=== PATIENT | male | born 1930 | race Caucasian/White ===

== ENCOUNTER 2020-08-14 12:41 | Inpatient (IN) | payer MEDICARE ==
[2020-08-14 13:25] LABS: #Basophils 0.1 10x3/uL (0.0-0.2); #Eosinphils 1.3 10x3/uL (0.0-0.5); #Monocytes 0.6 10x3/uL (0.0-1.1); #Neutrophils 6.4 10x3/uL (1.5-8.4); %Basophils 0.5 % (0.0-2.0); %Eosinophils 12.4 % (0.0-6.0); %Lymphocytes 21.7 % (18.0-47.0); %Monocytes 5.9 % (0.0-10.0); %Neutrophils 59.1 % (40.0-75.0); Mean Corpuscular HGB CONC 30.9 g/dL (32.0-36.0); Mean Corpuscular Hemoglobin 29.2 pg (27.0-33.0); Mean Corpuscular Volume 94.7 fl (81.2-95.1); Platelet Count 210 10x3/uL (150-450); RBC Distribution Width 15.5 % (11.5-14.5); Red Blood Cell (RBC) Count 5.13 10x6/uL (4.32-5.72); White Blood Cell (WBC) Count 10.8 10x3/uL (3.5-10.5)
[2020-08-14 13:33] LABS: ALT (SGPT) 20 U/L (8-55); AST (SGOT) 21 U/L (5-34); Albumin 3.8 g/dL (3.4-4.8); Alkaline Phosphatase 111 U/L (40-110); Anion Gap 12 mmol/L (10-20); BUN (Urea Nitrogen) 11 mg/dL (8.4-25.7); Bilirubin, Total 0.9 mg/dL (0.2-1.2); Calc. Creatinine Clearance 0 mL/min (70-130); Carbon Dioxide 29 mmol/L (23-31); Chloride 103 mmol/L (98-107); Globulin 3.2 g/dL (2.4-3.5); Glucose 143 mg/dL (83-110); Potassium 3.9 mmol/L (3.5-5.1); Sodium 140 mmol/L (136-145)
[2020-08-14 13:36] LABS: INR-International Normal Ratio 1.1; PTT 28.8 sec (22.0-33.0)
[2020-08-14] MEDS ORDERED: Ondansetron PF 4 MG/2 ML Vial IVP PRN (16:02)
[2020-08-14] MEDS ORDERED: Acetaminophen 325 MG TAB PO PRN (16:02)
[2020-08-14] MEDS ORDERED: Senokot S 8.6-50 MG TAB PO PRN (16:02)
[2020-08-14] MEDS ORDERED: Sodium Chloride 0.9% 1,000 ML IV SCH (16:15)
[2020-08-14 16:42] VITALS: BMI 28.3
[2020-08-14] MEDS: Metoprolol Tartrate 25 MG TAB PO SCH (22:25)
[2020-08-15] MEDS: Mometasone 100 MCG/PUFF (1 INHALER) INH SCH ×3 (05:25→21:12)
[2020-08-15] MEDS: Multivit, Therapeutic 1 TAB PO SCH (08:43)
[2020-08-15] MEDS: Digoxin 0.25 MG TAB PO SCH (08:43)
[2020-08-15] MEDS: Atorvastatin Calcium 40 MG TAB PO SCH (08:43)
[2020-08-15] MEDS: Metoprolol Tartrate 25 MG TAB PO SCH (08:44)
[2020-08-15 09:13] LABS: #Basophils 0.1 10x3/uL (0.0-0.2); #Eosinphils 1.2 10x3/uL (0.0-0.5); #Monocytes 1.1 10x3/uL (0.0-1.1); #Neutrophils 9.2 10x3/uL (1.5-8.4); %Basophils 0.5 % (0.0-2.0); %Eosinophils 8.3 % (0.0-6.0); %Lymphocytes 17.9 % (18.0-47.0); %Monocytes 7.8 % (0.0-10.0); %Neutrophils 65.1 % (40.0-75.0); Hemoglobin 14.3 g/dL (13.5-17.5); Mean Corpuscular HGB CONC 31.4 g/dL (32.0-36.0); Mean Corpuscular Hemoglobin 29.5 pg (27.0-33.0); Mean Platelet Volume 12.6 fl (7.4-10.4); Platelet Count 201 10x3/uL (150-450); RBC Distribution Width 15.6 % (11.5-14.5); Red Blood Cell (RBC) Count 4.85 10x6/uL (4.32-5.72); White Blood Cell (WBC) Count 14.2 10x3/uL (3.5-10.5)
[2020-08-15 09:19] LABS: ALT (SGPT) 22 U/L (8-55); AST (SGOT) 24 U/L (5-34); Albumin 3.6 g/dL (3.4-4.8); Alkaline Phosphatase 121 U/L (40-110); Anion Gap 13 mmol/L (10-20); BUN (Urea Nitrogen) 13 mg/dL (8.4-25.7); Bilirubin, Total 0.9 mg/dL (0.2-1.2); Calc. Creatinine Clearance 75 mL/min (70-130); Calcium 8.8 mg/dL (7.8-10.44); Carbon Dioxide 22 mmol/L (23-31); Chloride 108 mmol/L (98-107); Glucose 95 mg/dL (83-110); Potassium 4.4 mmol/L (3.5-5.1); Protein, Total 6.6 g/dL (5.8-8.1); Sodium 139 mmol/L (136-145)
[2020-08-15 11:13] LABS: Digoxin Less than 0.15 ng/mL (0.8-2.0)
[2020-08-15 13:42] LABS: SARS-CoV-2 PCR by NAA Not Detected (NotDetected)
[2020-08-15] MEDS ORDERED: Digoxin 0.5 MG/2 ML AMP SLOW IVP SCH (16:32)
[2020-08-15] MEDS ORDERED: Metoprolol Tartrate 25 MG TAB PO SCH (16:45)
[2020-08-15] MEDS: Apixaban 5 MG TAB PO SCH (20:40)
[2020-08-16] MEDS: Metoprolol Tartrate 25 MG TAB PO SCH ×2 (01:07→08:25)
[2020-08-16 04:12] LABS: #Basophils 0.1 10x3/uL (0.0-0.2); #Eosinphils 1.2 10x3/uL (0.0-0.5); #Monocytes 0.8 10x3/uL (0.0-1.1); #Neutrophils 5.4 10x3/uL (1.5-8.4); %Basophils 0.7 % (0.0-2.0); %Eosinophils 10.9 % (0.0-6.0); %Lymphocytes 30.5 % (18.0-47.0); %Monocytes 7.8 % (0.0-10.0); %Neutrophils 49.8 % (40.0-75.0); Hemoglobin 12.9 g/dL (13.5-17.5); Mean Corpuscular HGB CONC 31.6 g/dL (32.0-36.0); Mean Corpuscular Hemoglobin 29.5 pg (27.0-33.0); Mean Corpuscular Volume 93.4 fl (81.2-95.1); Platelet Count 186 10x3/uL (150-450); RBC Distribution Width 15.2 % (11.5-14.5); Red Blood Cell (RBC) Count 4.37 10x6/uL (4.32-5.72); White Blood Cell (WBC) Count 10.8 10x3/uL (3.5-10.5)
[2020-08-16 04:30] LABS: Anion Gap 12 mmol/L (10-20); BUN (Urea Nitrogen) 13 mg/dL (8.4-25.7); Calc. Creatinine Clearance 67 mL/min (70-130); Calcium 8.3 mg/dL (7.8-10.44); Carbon Dioxide 22 mmol/L (23-31); Chloride 108 mmol/L (98-107); Glucose 92 mg/dL (83-110); Potassium 3.8 mmol/L (3.5-5.1); Sodium 138 mmol/L (136-145)
[2020-08-16] MEDS: Multivit, Therapeutic 1 TAB PO SCH (08:25)
[2020-08-16] MEDS: Atorvastatin Calcium 40 MG TAB PO SCH (08:25)
[2020-08-16] MEDS: Apixaban 5 MG TAB PO SCH (08:26)
[2020-08-16] MEDS: Digoxin 0.25 MG TAB PO SCH (08:26)
[2020-08-16] MEDS: Mometasone 100 MCG/PUFF (1 INHALER) INH SCH (09:41)
[2020-08-16 12:59] LABS: Hemoglobin 12.8 g/dL (13.5-17.5)
[2020-08-16 16:15] VITALS: BP 131/62; TEMP 97.5
== END 2020-08-16 18:55 | disposition home health service (06) | DRG 395 ==
LOC: CSHERS 12:41 → CSHTELE 14:05 → UNDOADMOB 16:20 → INTOOBSV 16:20 → OBSVTOIN 08-15 09:14
PROVIDERS: ADMIT Internal Medicine; ATTEND Internal Medicine
DX: K64.9 Unspecified hemorrhoids (principal); I48.0 Paroxysmal atrial fibrillation; Z79.01 Long term (current) use of anticoagulants; E78.5 Hyperlipidemia, unspecified; F41.9 Anxiety disorder, unspecified; F32.9 Major depressive disorder, single episode, unspecified; I49.5 Sick sinus syndrome; Z86.73 Personal history of transient ischemic attack (TIA), and cerebral infarction without residual deficits; I10 Essential (primary) hypertension; J45.909 Unspecified asthma, uncomplicated; Z20.822 Contact with and (suspected) exposure to COVID-19
CPT/HCPCS: 80048; 80053; 80162; 85025; 85610; 85730; 87324; 87449; 87635; 93005; 93010; 94760; 99284; G0378; J1160; U0003; U0005